=== PATIENT | male | born 1970 | race Caucasian/White ===

== ENCOUNTER 2025-03-06 08:13 | Outpatient (CLI) | payer BC, OTHER | END 2025-03-06 08:14 | disposition home or self-care (01) | LOC: CSHSLEEP 08:13 | PROVIDERS: ATTEND Student in an Organized Health Care Education/Training Program | DX: G47.33 Obstructive sleep apnea (adult) (pediatric) (principal); R53.83 Other fatigue; R51.9 Headache, unspecified; K21.9 Gastro-esophageal reflux disease without esophagitis; E66.9 Obesity, unspecified; Z68.34 Body mass index [BMI] 34.0-34.9, adult; R06.83 Snoring; I10 Essential (primary) hypertension | CPT/HCPCS: 95800 ==

== ENCOUNTER 2025-06-30 09:24 | Outpatient (CLI) | payer BC | END 2025-06-30 09:25 | disposition home or self-care (01) | LOC: CSHSLEEP 09:24 | PROVIDERS: ATTEND Student in an Organized Health Care Education/Training Program | DX: G47.33 Obstructive sleep apnea (adult) (pediatric) (principal); R53.83 Other fatigue; R51.9 Headache, unspecified; K21.9 Gastro-esophageal reflux disease without esophagitis; E66.9 Obesity, unspecified; Z68.34 Body mass index [BMI] 34.0-34.9, adult; R06.83 Snoring; I10 Essential (primary) hypertension | CPT/HCPCS: 95811 ==

== ENCOUNTER 2025-08-08 08:13 | Outpatient (CLI) | payer BC | END 2025-08-08 08:14 | disposition home or self-care (01) | LOC: CSHCT 08:13 | PROVIDERS: ATTEND Internal Medicine Gastroenterology | DX: R10.11 Right upper quadrant pain (principal); R19.8 Other specified symptoms and signs involving the digestive system and abdomen; E66.3 Overweight; M51.9 Unspecified thoracic, thoracolumbar and lumbosacral intervertebral disc disorder | CPT/HCPCS: 74177 ==